=== PATIENT | male | born 1970 | race Caucasian/White ===

== ENCOUNTER → 2019-06-24 12:43 | Outpatient (BNVA) | payer MEDICARE, MEDICAID, SELFPAY | PROVIDERS: Family Provider Emergency Medicine; PCP Emergency Medicine; Visit Provider Nurse Practitioner | DX: M50.90 Cervical disc disorder, unspecified, unspecified cervical region (principal); M54.17 Radiculopathy, lumbosacral region; F17.210 Nicotine dependence, cigarettes, uncomplicated; Z79.891 Long term (current) use of opiate analgesic | CPT/HCPCS: 99213 ==

== ENCOUNTER → 2019-08-26 12:53 | Outpatient (BNVA) | payer MEDICARE, MEDICAID, SELFPAY | PROVIDERS: Family Provider Emergency Medicine; PCP Emergency Medicine; Visit Provider Anesthesiology | DX: M54.17 Radiculopathy, lumbosacral region (principal); M50.90 Cervical disc disorder, unspecified, unspecified cervical region; F17.210 Nicotine dependence, cigarettes, uncomplicated; Z79.891 Long term (current) use of opiate analgesic; Z71.6 Tobacco abuse counseling | CPT/HCPCS: 99214 ==

== ENCOUNTER 2019-12-19 09:38 | Emergency (ER) | payer MEDICARE, MEDICAID, SELFPAY ==
[2019-12-19 10:03] VITALS: BP 135/94; PULSE 71; RESP 16; TEMP 36.4; O2SAT 95; BMI 43.5
--- NOTE | 2019-12-19 10:54 | CT_ITS ---
WS: [id number] CT ABDOMEN PELVIS TECHNIQUE: Noncontrast CT of the abdomen and pelvis with coronal and sagittal reformatted images. CLINICAL INFORMATION: r flank pain COMPARISON: None. DLP: 1989.[address] scans at [facility] [place] use at least one of these dose optimization techniques: automat ed exposure control; mA and/or kV adjustment per patient size (includes targeted exams where dose is matched to clinical indication); or iterative reconstruction. FINDINGS: Mild right hydronephrosis. Small amount of inflammatory stranding about the right kidney. Mild right ureterectasis with inflamma tory stranding. Tiny calculus at the right UVJ along the bladder orifice measuring 2 mm. Left renal collecting system and ureter are decompressed. Noncontrast liver is normal. Normal noncont rast gallbladder. Noncontrast spleen is normal. Small esophageal hiatal hernia. Subsegmental atelecta sis in the lung bases. Mild fatty atrophy of the pancreas. No periaortic lymphadenopathy. Sigmoid colon appears normal. No evidence of small or large bowel obstruction. Normal appendix. Tiny fat-containing umbilical hernia. Disc space narrowing worse L5-S1. CT/CT kidney stone [id number] IMPRESSION: 1. Mild right hydronephrosis and ureterectasis with inflammatory stranding. 2. Tiny passed or nearly passed 2 mm calculus at the right UVJ bladder orifice . 3. No obstructing left renal or ureteral calculi. Tiny nonobstructing left dave al parenchymal calculus. 4. Appendix is normal in right lower quadrant.
--- NOTE | 2019-12-19 10:55 | ED_ITS ---
HPI - Back Pain/Injury General: Chief Complaint: Back Pain/Injury Stated Complaint: back pain Time Seen by Provider: 12/19/19 10:49 History of Present Illness: HPI Narrative: Patient ambulates in with complaint of back pain right flank that started about 0 300 this morning he has vomited x2 since then has a history of chronic pain and he is on medication for that through the pain management for lumbar spine pain denies any injury MD elicited complaint: back pain Pertinent past history: prior back pain Onset (ago): hour(s) Timing: constant and progressively worsening Severity: moderate Similar Symptoms Previously: No Quality: sharp Location: right flank Radiation: abdomen Exacerbating factors: movement Relieving factors: none Associated symptoms: Deny abdominal pain, chills, fever(s), nausea or vomiting Review of Systems Const: Denies: fever(s), chills or body aches Eyes: Denies: change in vision or blurry vision ENMT: Denies: throat pain or nasal congestion Card: Denies: chest pain or dyspnea on exertion Resp: Denies: dyspnea, productive cough or non-productive cough GI: Denies: abdominal pain, nausea or vomiting : Reports: other (Right flank pain); Denies: difficulty urinating Musc: Denies: extremity pain Skin/Breast: Denies: rash Neuro: Denies: headache(s) Psych: Denies: anxiety or depression Ritchie/Lymph: Denies: easy bruising PFSH ED PFSH: Medical History Cervical disc disorder Encounter for long-term (current) use of NSAIDs Encounter for long-term opiate analgesic use [facility] (current) use of opiate analgesic Lumbar pain Lumbosacral radiculopathy Tobacco use Family History Mother Cancer Uterine Social History Smoking and tobacco status: current every day smoker cigarettes Packs smoked per day: 1 Years cigarettes smoked: 25 Second hand smoke exposure: Yes Alcohol intake: never History of recent travel: No Physical Exam Const: COMMON NORMALS: no acute distress, average body habitus and patient oriented x3 HENMT: COMMON NORMALS: normocephalic HEAD & SCALP: normal to inspection and normocephalic FACE & SINUS: normal facial exam Eye: COMMON NORMALS: conjunctivae normal GENERAL EYE: appearance normal, both eyes and all related structures CONJUNCTIVA: Yes conjunctivae normal Neck/C-Spine: COMMON NORMALS: no JVD Chest: COMMONS NORMALS: normal inspection of the chest Resp: COMMON NORMALS: normal respiratory effort and clear to auscultation bilaterally AUSCULTATION: clear to auscultation bilaterally Cardio: COMMON NORMALS: no JVD, regular rate and regular rhythm RATE: regular rate RHYTHM: regular rhythm GI: COMMON NORMALS: Normal to inspection, nondistended, normoactive bowel sounds present : BLADDER/KIDNEY EXAM: Yes CVA tenderness Back/Pelvis: GENERAL BACK: Yes CVA tenderness CVA tenderness: right Extremity: COMMON NORMALS: normal to inspection and full ROM Neuro: COMMON NORMALS: patient oriented x3 Course Vital Signs: Vital signs: Vital Signs Temperature 97.6 F 12/19/19 10:03 Pulse Rate 71 12/19/19 10:03 Respiratory Rate 16 12/19/19 10:03 Blood Pressure 135/94 12/19/19 10:03 Pulse Oximetry 95 12/19/19 10:03 Discharge Plan Discharge Prescriptions: No Action atorvastatin [Lipitor] 80 mg tablet 80 mg PO ONCE RF: 0 lisinopril 10 mg tablet 10 mg PO ONCE RF: 0 ezetimibe [Zetia] 10 mg tablet 10 mg PO ONCE RF: 0 ibuprofen 800 mg tablet 800 mg PO TID RF: 0 hydrocodone-acetaminophen 10-325 mg tablet 0.5 tab PO BID PRN (Reason: pain) 30 Days Qty: 30 RF: 0 hydrocodone-acetaminophen 10-325 mg tablet 0.5 tab PO BID PRN (Reason: pain) 30 Days Qty: 30 RF: 0 tramadol 50 mg tablet 100 mg PO BID PRN (Reason: pain) 30 Days Qty: 120 RF: 1 Coding Level of Care Code 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
[2019-12-19 11:11] LABS: Basophils # 0.1 10^3/uL (0.0-0.1); Basophils % 0.4 %; Eosinophils # 0.1 10^3/uL (0.0-0.8); Eosinophils % 0.7 %; Hematocrit 48.5 % (42.0-52.0); Hemoglobin 16.4 g/dL (11.7-16.6); Lymphocytes # 2.9 10^3/uL (0.8-4.8); Lymphocytes % 22.4 %; Mean Corpuscular HGB Conc 33.8 g/dL (30.0-36.0); Mean Corpuscular Hemoglobin 30.5 pg (28.0-34.0); Mean Corpuscular Volume 90.1 fL (80-94); Mean Platelet Volume 10.8 fL (7.4-10.4); Monocytes # 0.8 10^3/uL (0.2-0.9); Monocytes % 6.5 %; Neutrophils # 8.9 10^3/uL (1.8-7.7); Neutrophils % 69.6 %; Nucleated Red Blood Cells % 0 %; Platelet Count 286 10^3/cmm (130-400); Red Blood Count 5.38 10^6/uL (4.1-5.3); Red Cell Distribution Width 12.9 % (12.1-15.1); White Blood Count 12.8 10^3/uL (4.0-10.0)
[2019-12-19] MEDS: ketorolac 30 mg/mL INJ IVP (11:12)
[2019-12-19] MEDS: sodium chloride 0.9% 1,000 ML 999 ML IV (11:12)
[2019-12-19] MEDS: ondansetron 2 mg/ML SDV 2 mL 4 MG IVP (11:12)
[2019-12-19 11:29] LABS: Alanine Aminotransferase 29 U/L (0-41); Albumin Level 4.3 g/dL (3.5-5.2); Alkaline Phosphatase 83 IU/L (40-130); Anion Gap 14.1 (5-19); Aspartate Amino Transferase 21 U/L (0-40); Blood Urea Nitrogen 9 mg/dL (6-20); Calcium 9.2 mg/dL (8.5-10.5); Carbon Dioxide 29 mmol/L (22-29); Chloride 100 mmol/L (98-107); Globulin 2.5 g/dL (1.3-4.6); Glomerular Filtration Rate 89.7 mL/min (90-130); Glucose 142 mg/dL (65-115); Osmolality Calculated 286 mOsm/kg (285-295); Potassium 4.1 mmol/L (3.5-5.1); Sodium 139 mmol/L (136-145); Total Bilirubin 0.5 mg/dL (0.15-1.2); Total Protein 6.8 g/dL (6.6-8.7)
[2019-12-19 12:17] LABS: Add Urine Microscopic? YES; Bilirubin Urine Neg (NEGATIVE); Blood Urine 2+ (Negative); Glucose Urine UA Norm (Normal); Ketones Urine Negative (Negative); Leukocyte Esterase Urine Negative (Negative); Nitrate Urine Negative (Negative); Protein Urine Neg (Negative); Sulfosalicylic Acid Urine Negative (Negative); Urine Appearance Clear (CLEAR); Urine Color Yellow (Yellow); Urobilinogen Urine Norm (Negative); pH Urine 8.5 (5-7)
[2019-12-19 12:22] LABS: Add Urine Culture? Yes; Bacteria Urine TRACE; RBC Urine 15-25 /hpf (0-2); Squamous Epithelial Cell Urine 0-4 (0-5)
[2019-12-19 12:58] VITALS: BP 138/87; PULSE 71; RESP 18; O2SAT 96
== END 2019-12-19 13:00 | disposition home or self-care (01) ==
PROVIDERS: Emergency Provider Nurse Practitioner Family
DX: M54.9 Dorsalgia, unspecified (principal); F17.210 Nicotine dependence, cigarettes, uncomplicated
CPT/HCPCS: 12345; 74176; 80053; 81001; 85025; 87086; 96361; 96374; 96375; 99282; 99283; J1885; J2405; J7030

== ENCOUNTER → 2019-12-21 13:20 | Outpatient (BNVA) | payer MEDICARE, MEDICAID, SELFPAY | PROVIDERS: Family Provider Emergency Medicine; PCP Emergency Medicine; Visit Provider Anesthesiology | DX: M54.42 Lumbago with sciatica, left side (principal); M54.17 Radiculopathy, lumbosacral region; M50.90 Cervical disc disorder, unspecified, unspecified cervical region; F17.210 Nicotine dependence, cigarettes, uncomplicated; Z79.891 Long term (current) use of opiate analgesic | CPT/HCPCS: 99214 ==

== ENCOUNTER → 2020-02-17 10:43 | Outpatient (BNVA) | payer MEDICARE, MEDICAID, SELFPAY | PROVIDERS: Family Provider Emergency Medicine; PCP Emergency Medicine; Visit Provider Anesthesiology | DX: M54.17 Radiculopathy, lumbosacral region (principal); M50.90 Cervical disc disorder, unspecified, unspecified cervical region; F17.210 Nicotine dependence, cigarettes, uncomplicated; Z79.891 Long term (current) use of opiate analgesic; Z71.6 Tobacco abuse counseling | CPT/HCPCS: 99214 ==

== ENCOUNTER → 2020-04-17 12:57 | Outpatient (BNVA) | payer MEDICARE, MEDICAID, SELFPAY | PROVIDERS: Family Provider Emergency Medicine; PCP Emergency Medicine; Visit Provider Anesthesiology | DX: M54.42 Lumbago with sciatica, left side (principal); M54.17 Radiculopathy, lumbosacral region; M50.90 Cervical disc disorder, unspecified, unspecified cervical region; F17.210 Nicotine dependence, cigarettes, uncomplicated; Z79.891 Long term (current) use of opiate analgesic | CPT/HCPCS: 99214 ==

== ENCOUNTER → 2020-06-05 13:09 | Outpatient (BNVA) | payer MEDICARE, MEDICAID, SELFPAY | PROVIDERS: Family Provider Emergency Medicine; PCP Emergency Medicine; Visit Provider Anesthesiology | DX: M54.42 Lumbago with sciatica, left side (principal); M54.17 Radiculopathy, lumbosacral region; M50.90 Cervical disc disorder, unspecified, unspecified cervical region; F17.210 Nicotine dependence, cigarettes, uncomplicated; Z79.891 Long term (current) use of opiate analgesic; Z71.6 Tobacco abuse counseling | CPT/HCPCS: 99214 ==

== ENCOUNTER → 2020-08-14 12:43 | Outpatient (BNVA) | payer MEDICARE, MEDICAID, SELFPAY | PROVIDERS: Family Provider Emergency Medicine; PCP Emergency Medicine; Visit Provider Anesthesiology | DX: M54.17 Radiculopathy, lumbosacral region (principal); M50.90 Cervical disc disorder, unspecified, unspecified cervical region; F17.210 Nicotine dependence, cigarettes, uncomplicated; Z79.891 Long term (current) use of opiate analgesic | CPT/HCPCS: 99213 ==

== ENCOUNTER → 2020-10-16 13:22 | Outpatient (BNVA) | payer MEDICARE, MEDICAID, SELFPAY | PROVIDERS: Family Provider Emergency Medicine; PCP Emergency Medicine; Visit Provider Anesthesiology | DX: M54.42 Lumbago with sciatica, left side (principal); F17.210 Nicotine dependence, cigarettes, uncomplicated; Z79.891 Long term (current) use of opiate analgesic | CPT/HCPCS: 99213 ==

== ENCOUNTER → 2020-12-14 12:54 | Outpatient (BNVA) | payer MEDICARE, MEDICAID, SELFPAY | PROVIDERS: Family Provider Emergency Medicine; PCP Emergency Medicine; Visit Provider Nurse Practitioner | DX: G89.29 Other chronic pain (principal); M54.17 Radiculopathy, lumbosacral region; M50.90 Cervical disc disorder, unspecified, unspecified cervical region; F17.210 Nicotine dependence, cigarettes, uncomplicated; Z79.899 Other long term (current) drug therapy; Z79.891 Long term (current) use of opiate analgesic; Z71.6 Tobacco abuse counseling | CPT/HCPCS: 99213; 99214 ==

== ENCOUNTER → 2021-02-14 12:31 | Outpatient (BNVA) | payer MEDICARE, MEDICAID, SELFPAY | PROVIDERS: Family Provider Emergency Medicine; PCP Emergency Medicine; Visit Provider Nurse Practitioner | DX: M54.17 Radiculopathy, lumbosacral region (principal); M50.90 Cervical disc disorder, unspecified, unspecified cervical region; F17.210 Nicotine dependence, cigarettes, uncomplicated; Z79.891 Long term (current) use of opiate analgesic; Z71.6 Tobacco abuse counseling | CPT/HCPCS: 99213 ==

== ENCOUNTER → 2021-04-12 09:42 | Outpatient (BNVA) | payer MEDICARE, MEDICAID, SELFPAY | PROVIDERS: Family Provider Emergency Medicine; PCP Emergency Medicine; Visit Provider Anesthesiology | DX: G89.29 Other chronic pain (principal); M54.17 Radiculopathy, lumbosacral region; M50.90 Cervical disc disorder, unspecified, unspecified cervical region; F17.210 Nicotine dependence, cigarettes, uncomplicated; Z71.6 Tobacco abuse counseling; Z79.891 Long term (current) use of opiate analgesic | CPT/HCPCS: 99214 ==

== ENCOUNTER → 2021-06-12 09:45 | Outpatient (BNVA) | payer MEDICARE, MEDICAID, SELFPAY | PROVIDERS: Family Provider Emergency Medicine; PCP Emergency Medicine; Visit Provider Anesthesiology | DX: G89.29 Other chronic pain (principal); M54.17 Radiculopathy, lumbosacral region; M50.90 Cervical disc disorder, unspecified, unspecified cervical region; F17.210 Nicotine dependence, cigarettes, uncomplicated; Z79.891 Long term (current) use of opiate analgesic | CPT/HCPCS: 99214 ==

== ENCOUNTER → 2021-08-08 12:24 | Outpatient (BNVA) | payer MEDICARE, MEDICAID, SELFPAY | PROVIDERS: Family Provider Emergency Medicine; PCP Emergency Medicine; Visit Provider Anesthesiology Pain Medicine | DX: M47.816 Spondylosis without myelopathy or radiculopathy, lumbar region (principal); M51.16 Intervertebral disc disorders with radiculopathy, lumbar region; M54.2 Cervicalgia; G03.9 Meningitis, unspecified; F17.210 Nicotine dependence, cigarettes, uncomplicated; Z79.891 Long term (current) use of opiate analgesic | CPT/HCPCS: 99205 ==

== ENCOUNTER → 2021-09-12 13:47 | Outpatient (BNVA) | payer MEDICARE, MEDICAID, SELFPAY | PROVIDERS: Family Provider Emergency Medicine; PCP Emergency Medicine; Visit Provider Anesthesiology Pain Medicine | DX: M47.816 Spondylosis without myelopathy or radiculopathy, lumbar region (principal); M51.16 Intervertebral disc disorders with radiculopathy, lumbar region; M25.511 Pain in right shoulder; M54.2 Cervicalgia; G03.9 Meningitis, unspecified; M79.604 Pain in right leg; M79.605 Pain in left leg; F17.210 Nicotine dependence, cigarettes, uncomplicated; Z79.891 Long term (current) use of opiate analgesic | CPT/HCPCS: 99214 ==

== ENCOUNTER 2021-09-26 10:49 | Outpatient (CLI) | payer MEDICARE, MEDICAID, SELFPAY ==
--- NOTE | 2021-09-26 11:00 | MR_ITS ---
WS: [id number] MRI LUMBAR SPINE NONCONTRAST HISTORY: Chronic back pain down LEFT leg. COMPARISON: 11/05/2015 TECHNIQUE: Sagittal and axial multisequence imaging is submitted. Straightening of the normal cervical lordosis. There is a central disc protrusion at C6-7 contacting the ventral thecal sac. Mild osteophytic ridging at C5-6. Very mild straightening of the posterior lumbar alignment. Benign hemangioma T12. Mild disc desiccation and narrowing at L5-S1. The remaining disc spaces are normal. Conus terminates normally at L1-2 disc level. L1-L2: Normal. L2-L3: Normal. L3-L4: Very slight annular disc bulge. No stenosis. L4-L5: Mild annular disc bulge with mild ligamentum flavum and facet arthritis. Very shallow RIGHT fo raminal to extraforaminal disc protrusion is reidentified with mild contact on the RIGHT L4 exiting n erve root. Similar to the prior study. L5-S1: Mild annular disc bulging. Moderate size RIGHT paracentral disc protrusion extends into the la teral recess contacting the RIGHT S1 nerve root. There is slight displacement of the RIGHT S1 nerve r oot. This disc protrusion has increased in size with greater contact on the S1 nerve root. There is a dditional increased soft tissue density in the LEFT foramen effacing the fat. Consistent with a LEFT foraminal disc protrusion which is new since the prior study. This disc protrusion would be contactin g the LEFT exiting L5 nerve root. MR/MR lumbar spine wo con* [id number] IMPRESSION: 1. Increase in size of the previously described RIGHT paracentral disc protrus ion contacting and displacing the RIGHT S1 nerve root. 2. Additional new LEFT foraminal disc protrusion at L5-S1 completely effacing the fat in the neural foramen and contacting the exiting LEFT L5 nerve root. 3. New bilateral foraminal stenosis at L5-S1, LEFT greater than RIGHT. 4. Shallow RIGHT foraminal and extraforaminal disc protrusion contacting the R IGHT L4 nerve root, unchanged since the prior study.
== END 2021-09-26 10:50 | disposition home or self-care (01) ==
LOC: RAD 10:51
PROVIDERS: Family Provider Emergency Medicine; PCP Emergency Medicine; Visit Provider Anesthesiology Pain Medicine
DX: M48.062 Spinal stenosis, lumbar region with neurogenic claudication (principal); M54.16 Radiculopathy, lumbar region; M51.26 Other intervertebral disc displacement, lumbar region; M51.27 Other intervertebral disc displacement, lumbosacral region; M48.07 Spinal stenosis, lumbosacral region
CPT/HCPCS: 72148

== ENCOUNTER → 2021-10-08 14:48 | Outpatient (BNVA) | payer MEDICARE, MEDICAID, SELFPAY | PROVIDERS: Family Provider Emergency Medicine; PCP Emergency Medicine; Visit Provider Anesthesiology Pain Medicine | DX: M47.816 Spondylosis without myelopathy or radiculopathy, lumbar region (principal); M51.16 Intervertebral disc disorders with radiculopathy, lumbar region; M54.2 Cervicalgia; F17.210 Nicotine dependence, cigarettes, uncomplicated; Z79.891 Long term (current) use of opiate analgesic | CPT/HCPCS: 99213; 99214 ==

== ENCOUNTER → 2021-10-30 14:10 | Outpatient (BNVA) | payer MEDICARE, MEDICAID, SELFPAY | PROVIDERS: Family Provider Emergency Medicine; PCP Emergency Medicine; Visit Provider Emergency Medicine | DX: G89.29 Other chronic pain (principal); M25.512 Pain in left shoulder | CPT/HCPCS: 73030 ==

== ENCOUNTER → 2021-11-07 09:40 | Outpatient (BNVA) | payer MEDICARE, MEDICAID, SELFPAY | PROVIDERS: Family Provider Emergency Medicine; PCP Emergency Medicine; Visit Provider Anesthesiology Pain Medicine | DX: M47.816 Spondylosis without myelopathy or radiculopathy, lumbar region (principal); M51.16 Intervertebral disc disorders with radiculopathy, lumbar region; M54.2 Cervicalgia; G03.9 Meningitis, unspecified; M79.604 Pain in right leg; M79.605 Pain in left leg; F17.210 Nicotine dependence, cigarettes, uncomplicated; Z79.891 Long term (current) use of opiate analgesic | CPT/HCPCS: 99214 ==

== ENCOUNTER 2021-11-28 06:00 | Outpatient (RCR) | payer MEDICARE, MEDICAID, SELFPAY | END 2021-12-19 23:59 | disposition home or self-care (01) | LOC: MPT 06:00 | PROVIDERS: PCP Emergency Medicine; Referring Provider Anesthesiology Pain Medicine; Visit Provider Anesthesiology Pain Medicine | DX: G89.29 Other chronic pain (principal); M54.50 Low back pain, unspecified | CPT/HCPCS: 97110; 97162; G0283 ==

== ENCOUNTER → 2021-12-11 14:11 | Outpatient (BNVA) | payer MEDICARE, MEDICAID, SELFPAY | PROVIDERS: PCP Emergency Medicine; Visit Provider Anesthesiology Pain Medicine | DX: M75.02 Adhesive capsulitis of left shoulder (principal); M51.16 Intervertebral disc disorders with radiculopathy, lumbar region; M47.816 Spondylosis without myelopathy or radiculopathy, lumbar region; M54.2 Cervicalgia; G03.9 Meningitis, unspecified; M79.604 Pain in right leg; M79.605 Pain in left leg; F17.210 Nicotine dependence, cigarettes, uncomplicated; Z79.891 Long term (current) use of opiate analgesic | CPT/HCPCS: 99203; 99213; 99214 ==

== ENCOUNTER 2021-12-20 06:00 | Outpatient (RCR) | payer MEDICARE, MEDICAID, SELFPAY | END 2022-01-19 23:59 | disposition home or self-care (01) | LOC: MPT 06:00 | PROVIDERS: PCP Emergency Medicine; Referring Provider Anesthesiology Pain Medicine; Visit Provider Anesthesiology Pain Medicine | DX: M54.50 Low back pain, unspecified (principal); G89.29 Other chronic pain | CPT/HCPCS: 97110; G0283 ==

== ENCOUNTER → 2022-01-09 13:11 | Outpatient (BNVA) | payer MEDICARE, MEDICAID, SELFPAY | PROVIDERS: PCP Emergency Medicine; Visit Provider Anesthesiology Pain Medicine | DX: G89.29 Other chronic pain (principal); M51.16 Intervertebral disc disorders with radiculopathy, lumbar region; M47.816 Spondylosis without myelopathy or radiculopathy, lumbar region; M54.2 Cervicalgia; M25.512 Pain in left shoulder; G03.9 Meningitis, unspecified; M79.605 Pain in left leg; M79.604 Pain in right leg; Z79.891 Long term (current) use of opiate analgesic; F17.210 Nicotine dependence, cigarettes, uncomplicated | CPT/HCPCS: 99214 ==

== ENCOUNTER → 2022-02-11 12:47 | Outpatient (BNVA) | payer MEDICARE, MEDICAID, SELFPAY | PROVIDERS: PCP Emergency Medicine; Visit Provider Anesthesiology Pain Medicine | DX: G89.29 Other chronic pain (principal); M47.816 Spondylosis without myelopathy or radiculopathy, lumbar region; M51.16 Intervertebral disc disorders with radiculopathy, lumbar region; G03.9 Meningitis, unspecified; M25.512 Pain in left shoulder; M79.604 Pain in right leg; M79.605 Pain in left leg; F17.210 Nicotine dependence, cigarettes, uncomplicated; Z79.891 Long term (current) use of opiate analgesic | CPT/HCPCS: 99214 ==

== ENCOUNTER → 2022-03-13 12:40 | Outpatient (BNVA) | payer MEDICARE, MEDICAID, SELFPAY | PROVIDERS: PCP Emergency Medicine; Visit Provider Anesthesiology Pain Medicine | DX: G89.29 Other chronic pain (principal); M47.816 Spondylosis without myelopathy or radiculopathy, lumbar region; M51.16 Intervertebral disc disorders with radiculopathy, lumbar region; M54.2 Cervicalgia; G03.9 Meningitis, unspecified; M25.512 Pain in left shoulder; F17.210 Nicotine dependence, cigarettes, uncomplicated | CPT/HCPCS: 99214 ==

== ENCOUNTER → 2022-04-10 13:19 | Outpatient (BNVA) | payer MEDICARE, MEDICAID, SELFPAY | PROVIDERS: PCP Emergency Medicine; Visit Provider Anesthesiology Pain Medicine | DX: G89.29 Other chronic pain (principal); M51.16 Intervertebral disc disorders with radiculopathy, lumbar region; M47.816 Spondylosis without myelopathy or radiculopathy, lumbar region; M54.2 Cervicalgia; M25.512 Pain in left shoulder; G03.9 Meningitis, unspecified; M79.605 Pain in left leg; M79.604 Pain in right leg; F17.210 Nicotine dependence, cigarettes, uncomplicated | CPT/HCPCS: 99214 ==

== ENCOUNTER → 2022-05-05 12:30 | Outpatient (BNVA) | payer MEDICARE, MEDICAID, SELFPAY | PROVIDERS: PCP Emergency Medicine; Visit Provider Anesthesiology Pain Medicine | DX: G89.29 Other chronic pain (principal); M47.816 Spondylosis without myelopathy or radiculopathy, lumbar region; M51.16 Intervertebral disc disorders with radiculopathy, lumbar region; M25.512 Pain in left shoulder; G03.9 Meningitis, unspecified; M79.604 Pain in right leg; M79.605 Pain in left leg; F17.210 Nicotine dependence, cigarettes, uncomplicated; M54.2 Cervicalgia | CPT/HCPCS: 99214 ==

== ENCOUNTER → 2022-06-03 12:43 | Outpatient (BNVA) | payer MEDICARE, MEDICAID, SELFPAY | PROVIDERS: PCP Emergency Medicine; Visit Provider Anesthesiology Pain Medicine | DX: G89.29 Other chronic pain (principal); M51.16 Intervertebral disc disorders with radiculopathy, lumbar region; M47.816 Spondylosis without myelopathy or radiculopathy, lumbar region; M25.512 Pain in left shoulder; G03.9 Meningitis, unspecified; M79.604 Pain in right leg; M79.605 Pain in left leg | CPT/HCPCS: 99214 ==

== ENCOUNTER → 2022-07-03 12:18 | Outpatient (BNVA) | payer MEDICARE, MEDICAID, SELFPAY | PROVIDERS: PCP Emergency Medicine; Visit Provider Anesthesiology Pain Medicine | DX: G89.29 Other chronic pain (principal); M47.816 Spondylosis without myelopathy or radiculopathy, lumbar region; M51.16 Intervertebral disc disorders with radiculopathy, lumbar region; M54.2 Cervicalgia; M25.512 Pain in left shoulder; G03.9 Meningitis, unspecified; Z79.891 Long term (current) use of opiate analgesic; M79.604 Pain in right leg; M79.605 Pain in left leg | CPT/HCPCS: 99214 ==

== ENCOUNTER → 2022-07-31 13:03 | Outpatient (BNVA) | payer MEDICARE, MEDICAID, SELFPAY | PROVIDERS: PCP Emergency Medicine; Visit Provider Anesthesiology Pain Medicine | DX: G89.29 Other chronic pain (principal); M47.816 Spondylosis without myelopathy or radiculopathy, lumbar region; M51.16 Intervertebral disc disorders with radiculopathy, lumbar region; M54.2 Cervicalgia; M25.512 Pain in left shoulder; G03.9 Meningitis, unspecified | CPT/HCPCS: 99214 ==

== ENCOUNTER → 2022-08-26 10:57 | Outpatient (BNVA) | payer MEDICARE, MEDICAID, SELFPAY | PROVIDERS: PCP Emergency Medicine; Visit Provider Anesthesiology Pain Medicine | DX: G89.29 Other chronic pain (principal); M47.816 Spondylosis without myelopathy or radiculopathy, lumbar region; M51.16 Intervertebral disc disorders with radiculopathy, lumbar region; G03.9 Meningitis, unspecified; M25.512 Pain in left shoulder; M54.2 Cervicalgia | CPT/HCPCS: 99214 ==

== ENCOUNTER → 2022-09-24 09:25 | Outpatient (BNVA) | payer MEDICARE, MEDICAID, SELFPAY | PROVIDERS: Visit Provider Anesthesiology Pain Medicine | DX: G89.29 Other chronic pain (principal); M47.816 Spondylosis without myelopathy or radiculopathy, lumbar region; M51.16 Intervertebral disc disorders with radiculopathy, lumbar region; M54.2 Cervicalgia; M25.512 Pain in left shoulder | CPT/HCPCS: 99214 ==

== ENCOUNTER → 2022-10-30 10:03 | Outpatient (BNVA) | payer MEDICARE, MEDICAID, SELFPAY | PROVIDERS: Visit Provider Anesthesiology Pain Medicine | DX: G89.29 Other chronic pain (principal); M54.2 Cervicalgia; G03.9 Meningitis, unspecified; M47.816 Spondylosis without myelopathy or radiculopathy, lumbar region; M51.16 Intervertebral disc disorders with radiculopathy, lumbar region; M25.512 Pain in left shoulder | CPT/HCPCS: 99214 ==

== ENCOUNTER → 2022-11-26 09:31 | Outpatient (BNVA) | payer MEDICARE, MEDICAID, SELFPAY | PROVIDERS: Visit Provider Anesthesiology Pain Medicine | DX: G89.29 Other chronic pain (principal); M54.2 Cervicalgia; M47.816 Spondylosis without myelopathy or radiculopathy, lumbar region; M51.16 Intervertebral disc disorders with radiculopathy, lumbar region; M25.512 Pain in left shoulder | CPT/HCPCS: 99214 ==

== ENCOUNTER → 2022-12-18 12:45 | Outpatient (BNVA) | payer MEDICARE, MEDICAID, SELFPAY | PROVIDERS: Visit Provider Anesthesiology Pain Medicine | DX: G89.29 Other chronic pain (principal); M51.16 Intervertebral disc disorders with radiculopathy, lumbar region; M47.816 Spondylosis without myelopathy or radiculopathy, lumbar region; G03.9 Meningitis, unspecified; M54.2 Cervicalgia; M25.512 Pain in left shoulder | CPT/HCPCS: 99213 ==

== ENCOUNTER → 2023-01-06 13:57 | Outpatient (BNVA) | payer MEDICARE, MEDICAID, SELFPAY | PROVIDERS: Visit Provider Orthopaedic Surgery | DX: M51.16 Intervertebral disc disorders with radiculopathy, lumbar region (principal); M47.816 Spondylosis without myelopathy or radiculopathy, lumbar region; M54.50 Low back pain, unspecified | CPT/HCPCS: 72110; 99204 ==

== ENCOUNTER → 2023-01-15 12:56 | Outpatient (BNVA) | payer MEDICARE, MEDICAID, SELFPAY | PROVIDERS: Visit Provider Anesthesiology Pain Medicine | DX: M51.16 Intervertebral disc disorders with radiculopathy, lumbar region (principal); G03.9 Meningitis, unspecified; M47.816 Spondylosis without myelopathy or radiculopathy, lumbar region; M25.512 Pain in left shoulder; G89.29 Other chronic pain | CPT/HCPCS: 99213 ==

== ENCOUNTER → 2023-01-21 14:37 | Outpatient (BNVA) | payer MEDICARE, MEDICAID, SELFPAY | PROVIDERS: Visit Provider Family Medicine | DX: I10 Essential (primary) hypertension (principal); M51.16 Intervertebral disc disorders with radiculopathy, lumbar region; E78.5 Hyperlipidemia, unspecified; E78.2 Mixed hyperlipidemia; Z13.1 Encounter for screening for diabetes mellitus; Z76.89 Persons encountering health services in other specified circumstances | CPT/HCPCS: 80053; 80061 ==

== ENCOUNTER 2023-01-30 14:44 | Outpatient (CLI) | payer MEDICARE, MEDICAID, SELFPAY ==
--- NOTE | 2023-01-30 15:15 | MR_ITS ---
WS: [id number] MRI LUMBAR SPINE NONCONTRAST HISTORY: lower back pain COMPARISON: 09/26/2021 TECHNIQUE: Sagittal and axial multisequence imaging is submitted. Central disc protrusion at C6-7. Mild contact on the ventral cervical cord. Normal lumbar alignment with no compression fractures or marrow edema. Mild disc desiccation at L5-S1. No acute fracture. Conus terminates normally at L1-2 disc level. L1-L2: Normal. L2-L3: New central disc protrusion slightly greatest to the right deforming the ventral thecal sac. T here is mild contact on the traversing L3 nerve roots. L3-L4: Mild annular disc bulging. Disc contacts but does not displace the traversing L4 nerve roots. No significant stenosis. L4-L5: Mild annular disc bulging with mild facet and ligamentum flavum hypertrophy. Very slight disc contact on the traversing L5 nerve roots but no displacement. Minimal right foraminal disc protrusion is reidentified. Slight decrease in size of the right foraminal disc protrusion since the prior stud y. Less contact on the exiting right L4 nerve root. Mild to moderate right foraminal stenosis. L5-S1: Moderate annular disc bulging with slight decrease in size of the right paracentral disc protr usion previously described. Disc protrusion contacts the right S1 nerve root but less displacement th an on the prior study. Left foraminal disc protrusion is reidentified. Continued moderate to severe l eft foraminal stenosis with near complete effacement of fat. Mild right foraminal stenosis. Paravertebral soft tissues are normal. IMPRESSION: 1. L5-S1: The right paracentral disc protrusion previously described has slightly decreased in size. There is still contact on the right S1 nerve root but less displacement. 2. Moderate to severe left foraminal stenosis at L5-S1 and mild right foraminal stenosis. 3. L2-3: New central disc protrusion extending just to the right of midline. Mild contact on the yifan ersing L3 nerve roots. 4. No high-grade central stenosis. 5. L4-5: Mild to moderate right foraminal stenosis. The disc protrusion previously described has slig htly decreased in size.
== END 2023-01-30 14:45 | disposition home or self-care (01) ==
LOC: RAD 14:45
PROVIDERS: PCP Orthopaedic Surgery; Visit Provider Orthopaedic Surgery
DX: M51.16 Intervertebral disc disorders with radiculopathy, lumbar region (principal); M51.27 Other intervertebral disc displacement, lumbosacral region; M48.07 Spinal stenosis, lumbosacral region
CPT/HCPCS: 72148

== ENCOUNTER → 2023-02-03 13:50 | Outpatient (BNVA) | payer MEDICARE, MEDICAID, SELFPAY | PROVIDERS: PCP Orthopaedic Surgery; Visit Provider Physician Assistant | DX: M51.16 Intervertebral disc disorders with radiculopathy, lumbar region (principal) | CPT/HCPCS: 99213 ==

== ENCOUNTER → 2023-02-17 13:23 | Outpatient (BNVA) | payer MEDICARE, MEDICAID, SELFPAY | PROVIDERS: PCP Orthopaedic Surgery; Visit Provider Anesthesiology Pain Medicine | DX: M51.16 Intervertebral disc disorders with radiculopathy, lumbar region (principal); M48.061 Spinal stenosis, lumbar region without neurogenic claudication; M51.26 Other intervertebral disc displacement, lumbar region; M51.37 Other intervertebral disc degeneration, lumbosacral region | CPT/HCPCS: 99214 ==

== ENCOUNTER → 2023-02-26 11:01 | Outpatient (BNVA) | payer MEDICARE, MEDICAID, SELFPAY | PROVIDERS: PCP Orthopaedic Surgery; Visit Provider Orthopaedic Surgery | DX: Z01.818 Encounter for other preprocedural examination (principal); M48.062 Spinal stenosis, lumbar region with neurogenic claudication | CPT/HCPCS: 99214 ==

== ENCOUNTER → 2023-03-10 13:15 | Outpatient (BNVA) | payer MEDICARE, MEDICAID, SELFPAY | PROVIDERS: PCP Family Medicine; Referring Provider Orthopaedic Surgery; Visit Provider Orthopaedic Surgery | DX: Z01.818 Encounter for other preprocedural examination (principal); M48.062 Spinal stenosis, lumbar region with neurogenic claudication | CPT/HCPCS: 80053; 81000; 85025 ==

== ENCOUNTER → 2023-03-17 14:44 | Outpatient (BNVA) | payer MEDICARE, MEDICAID, SELFPAY | PROVIDERS: PCP Family Medicine; Visit Provider Family Medicine | DX: Z01.818 Encounter for other preprocedural examination (principal); Z79.891 Long term (current) use of opiate analgesic | CPT/HCPCS: 81003; 83036 ==

== ENCOUNTER → 2023-03-19 14:22 | Outpatient (BNVA) | payer MEDICARE, MEDICAID, SELFPAY | PROVIDERS: PCP Family Medicine; Visit Provider Anesthesiology Pain Medicine | DX: M51.16 Intervertebral disc disorders with radiculopathy, lumbar region (principal); M48.061 Spinal stenosis, lumbar region without neurogenic claudication | CPT/HCPCS: 99214 ==

== ENCOUNTER 2023-03-25 07:55 | Day surgery (SDC) | payer MEDICARE, MEDICAID, SELFPAY ==
[2023-03-25] VITALS (8 sets, daily range): BP systolic 106–148; BP diastolic 47–92; PULSE 70–77; RESP 16–20; TEMP 36.1–36.6; O2SAT 91–97; BMI 47.9
--- NOTE | 2023-03-25 | XR_ITS ---
WS: [id number] EXAMINATION: XR lumbar spine 2-3V* [id number] L-SPINE : 2 views REASON FOR EXAM: L4-5; L5-S1 decompression COMPARISON: None available. ORDER DATE: 03/25/2023 12:00 AM FINDINGS/IMPRESSION: Fluoroscopy time 25.5 seconds Surgical instrumentation superimposing the lower lumbar spine localizing the L4-5 and L5-S1 disc spac es..
[2023-03-25 08:28] LABS: Glucose Point of Care 127 mg/dL (70-110)
[2023-03-25] MEDS: sodium chloride 0.9% 1,000 ML 30 ML IV (08:34)
--- NOTE | 2023-03-25 08:46 | ECG_ITS ---
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 Measurements Intervals [place] Rate: 64 P: 37 IL: 138 QRS: -43 QRSD: 99 T: -8 QT: 398 QTc: 412 Interpretive Statements SINUS RHYTHM LEFT AXIS DEVIATION [QRS AXIS < -30] PATTERN CONSISTENT WITH PULMONARY DISEASE INCOMPLETE RIGHT BUNDLE BRANCH BLOCK [90+ ms QRS DURATION, TERMINAL R IN V1/V2, 40+ ms S IN I/aVL/V4/V5/V6] No previous ECG available for comparison Electronically Signed On 03-25-2023 10:03:16 CDT by Ivis Deng M.D. [id number]
--- NOTE | 2023-03-25 09:03 | W.PM.OPSUD ---
Surgery/Procedure H&P Update DATE OF PROCEDURE: March 25, 2023 DATE H&P PERFORMED: 03/17/23 H&P UPDATE INFORMATION: I have reviewed H&P completed within last 30 days, I have examined patient prior to procedure and No changes to prior documentation PREOP DIAGNOSIS: Lumbar stenosis PLANNED PROCEDURE: Operation Date: 03/25/23 09:35 Proposed Procedures p Lumbar Spine Decompression/(Standing on Left)L 4/5 L5/S1 Decompression(Left) - Sarkis Gagnon DO
--- NOTE | 2023-03-25 09:27 | ANES.PREANE2 ---
Pre-Anesthetic Assessment Height/Weight: Height 1.68 m Weight 134.626 kg Temp Pulse Resp BP Pulse Ox O2 Del Method 97 F L 72 20 H 148/92 97 Room Air 03/25/23 08:15 03/25/23 08:15 03/25/23 08:15 03/25/23 08:15 03/25/23 08:15 03/25/23 08:15 Preop Diagnosis: Lumbar stenosis Operation Date: 03/25/23 09:35 Proposed Procedures p Lumbar Spine Decompression/(Standing on Left)L 4/5 L5/S1 Decompression(Left) - Sarkis Gagnon, DO Familial anesthetic complications: None Was Beta Sin taken within 24 hours: N/A Was Clonidine taken within 24 hours: N/A Last intake: Intake Last Liquid Date 03/24/23 Last Liquid Time 23:00 Last Solid Date 03/24/23 Last Solid Time 23:00 Social No alcohol and No tobacco Exam alert, oriented x 3, clear to auscultation bilaterally and regular rate & rhythm Airway Dentition: other (no teeth) Pulmonary Chronic Obstructive Pulmonary Disease CV/HEM Hypertension GI Gastroesophageal Reflux Disease Metabolic Hyperlipidemia Anesthetic Plan ASA status: 3 Anesthesia: General Risk of > 500 ml blood loss (7ml/kg in children): No Medications/Allergies Home Medications Medication Instructions Recorded Confirmed Last Taken Type atorvastatin 80 mg tablet (Lipitor) 80 mg PO DAILY 90 days #90 tabs 01/21/23 03/24/23 03/24/23 Rx ezetimibe 10 mg tablet (Zetia) 10 mg PO DAILY 90 days #90 tabs 01/21/23 03/24/23 03/24/23 Rx ibuprofen 800 mg tablet 800 mg PO BID PRN pain #90 tabs 01/21/23 03/24/23 03/20/23 Rx lisinopril 10 mg tablet 10 mg PO DAILY 90 days #90 tabs 01/21/23 03/24/23 03/24/23 Rx blood sugar diagnostic (Blood #50 ea 03/19/23 03/19/23 Unknown Rx Glucose Test strips) blood-glucose meter (Blood Glucose #1 ea 03/19/23 03/19/23 Unknown Rx Monitoring kit) hydrocodone 5 mg-acetaminophen 325 1 tab PO BID PRN pain 30 days #60 03/19/23 03/24/23 03/24/23 Rx mg tablet tabs lancets #100 ea 03/19/23 03/19/23 Unknown Rx Allergies Allergy/AdvReac Type Severity Reaction Status Date / Time [facility] AdvReac upset Verified 03/25/23 08:07 stomach Current Medications Generic Name Dose Route Start Last Admin Trade Name Mary Jo PRN Reason Stop Dose Admin Sodium Chloride 1,000 mls @ 30 mls/hr 03/25/23 08:15 03/25/23 08:34 Sodium Chloride 0.9% IV 03/26/23 08:14 30 mls/hr .Q24H LOVELY Administration PFSH Anesthesia Medical History Arthralgia of left acromioclavicular joint Cervical disc disorder Chronic left shoulder pain Encounter for long-term (current) use of NSAIDs Encounter for long-term opiate analgesic use Fatigue half-way (current) use of opiate analgesic Lumbar pain Lumbosacral radiculopathy Tobacco abuse counseling Tobacco use Family History Mother Cancer Uterine Hypertension Father Cancer bladder Hypertension Grandmother Diabetes paternal Cancer maternal- grandmother had breast cancer Denies family history of Thyroid disease, antepartum Clotting disorder Chronic kidney disease (CKD) Bleeding disorder Stroke Social History Smoking and tobacco status: current every day smoker cigarettes Packs smoked per day: 1 Years cigarettes smoked: 25 Quit status (tobacco): considering quitting Alcohol intake: never Substance/Drug Use: never Data Anesthesia Cardiac Studies: No Data to Display
[2023-03-25] MEDS: ceFAZolin 2,000 MG in sodium chloride 0.9% (plus) 50 ML 100 MG IV (09:35)
[2023-03-25] MEDS: lidocaine-epi 2% 20 mL INJ INJECTION (10:05)
--- NOTE | 2023-03-25 10:51 | P.OP_ITS ---
Operative Report Date of procedure: March 25, 2023 Pre-op diagnosis: Lumbar stenosis with neurogenic claudication Post-op diagnosis: same Procedure done: 1. L4-5 laminectomy with partial facetectomy 2. L5-S1 laminectomy with partial facetectomy Surgeon: Sarkis Gagnon DO Cracker Off: Ashish Zepeda Cracker Off: The director surgical, Ashish Zepeda, KOMAL was needed for his expertise under the microscope. He was important and necessary throughout the procedure to complete in a safe and timely manner. He assisted with patient positioning prepping and draping tissue retraction suctioning of the operative field protection of the dural sac and tissue closure Estimated blood loss (mL): 25 Procedure: 1. L4-5 laminectomy with partial facetectomy 2. L5-S1 laminectomy with partial facetectomy Patient is brought to the operative suite. After undergoing anesthesia they are placed in the prone position. All areas of impingement are well padded. Patient is then prepped and draped in the normal sterile fashion. A skin incision is made over the L4/5 level. This is confirmed under c-arm guidance. A series of dilators are passed and the tubular retractor is docked on the L4 lamina. A bovie is used to clear the soft tissue off the lamina and the L 4/5 facet joint. A high speed jose roberto is then used to perform the laminectomy and take down the medial aspect of the L 4/5 facet joint. A kerrison rongeure was then used to take down the remaining lamina and smooth the edge of the laminectomy up to the point where the ligamentum flavum attaches. Attention was then brought to the medial aspect of the facet joint. The remaining medial aspect of the superior and inferior aspect of the facet joint were taken down with the kerrison from the pedicle of L4 to L 5. The facet joint had significant hypertrophy. Attention was then brought to the Ligamentum Flavum. The ligament was taken down from the lamina of L4 to L5 and out medially to the remaining facet joint. The ligament was thick. The dura was then exposed. The dura was in good repair. The L4 nerve was then traced with a curette out the L4/5 foramen and found to be adequately decompressed. The L5 nerve was traced with a curette around the L5 pedicle. The lateral recess was opened with a kerrison helping to further decompress the L5 nerve. Wound is then irrigated copiously with saline and surgiflo is used to stop any bleeding. The tubular retractor is removed and the A skin incision is made over the L5/S1 level. This is confirmed under c-arm guidance. A series of dilators are passed and the tubular retractor is docked on the L5 lamina. A bovie is used to clear the soft tissue off the lamina and the L 5/S1 facet joint. A high speed jose roberto is then used to perform the laminectomy and take down the medial aspect of the L 5/S1 facet joint. A kerrison rongeure was then used to take down the remaining lamina and smooth the edge of the laminectomy up to the point where the ligamentum flavum attaches. Attention was then brought to the medial aspect of the facet joint. The remaining medial aspect of the superior and inferior aspect of the facet joint were taken down with the kerrison from the pedicle of L5 to s1. The facet joint had significant hypertrophy. Attention was then brought to the Ligamentum Flavum. The ligament was taken down from the lamina of L5 to S1 and out medially to the remaining facet joint. The ligament was thick. The dura was then exposed. The dura was in good repair. The L5 nerve was then traced with a curette out the L5/S1 foramen and found to be adequately decompressed. The s1 nerve was traced with a curette around the S1 pedicle. The lateral recess was opened with a kerrison helping to further decompress the S1 nerve. Wound is then irrigated copiously with saline and surgiflo is used to stop any bleeding. The tubular retractor is removed and the wound is closed with vicryl and monocryl suture. Glue is then used to protect the wound. A sterile dressing is then placed. Patient was then placed in the supine position and transferred to the PACU in stable condition.
--- NOTE | 2023-03-25 11:00 | ANE.PACU2 ---
Inpatient post-anesthesia follow up: Airway intact: Yes Vital signs: Temperature 97.8 F Pulse Rate 70 Respiratory Rate 16 Blood Pressure 143/80 Pulse Oximetry 92 Oxygen Delivery Me thod Room Air Oxygen Flow Rate 8 Fraction of Inspir ed Oxygen Hydration adequate: Yes Nausea and vomiting: No Pain level: 1 Mental status: Baseline
[2023-03-25] MEDS: HYDROcodone-acetaminophen 5-325 mg Tablet 1 TAB PO (11:25)
== END 2023-03-25 12:04 | disposition home or self-care (01) ==
PROVIDERS: PCP Family Medicine; Visit Provider Orthopaedic Surgery
PROC: (CPT 63005; principal; 2023-03-25 09:25)
DX: M48.062 Spinal stenosis, lumbar region with neurogenic claudication (principal); J44.9 Chronic obstructive pulmonary disease, unspecified; I10 Essential (primary) hypertension; K21.9 Gastro-esophageal reflux disease without esophagitis; E78.5 Hyperlipidemia, unspecified; F17.210 Nicotine dependence, cigarettes, uncomplicated; I45.10 Unspecified right bundle-branch block
CPT/HCPCS: 63047; 63048; 36416; 72100; 76000; 82962; 93005; J0330; J0690; J1100; J2405; J2704; J3010; J3490; J7030

== ENCOUNTER → 2023-04-07 13:17 | Outpatient (BNVA) | payer MEDICARE, MEDICAID, SELFPAY | PROVIDERS: PCP Family Medicine; Visit Provider Family Medicine | DX: Z23 Encounter for immunization (principal); E11.9 Type 2 diabetes mellitus without complications; R53.83 Other fatigue; E34.9 Endocrine disorder, unspecified; G47.10 Hypersomnia, unspecified; I10 Essential (primary) hypertension; R53.82 Chronic fatigue, unspecified | CPT/HCPCS: 82607; 84402; 84403; 84443 ==

== ENCOUNTER → 2023-04-09 09:04 | Outpatient (BNVA) | payer MEDICARE, MEDICAID, SELFPAY | PROVIDERS: PCP Family Medicine; Visit Provider Physician Assistant | DX: M48.062 Spinal stenosis, lumbar region with neurogenic claudication (principal); Z47.89 Encounter for other orthopedic aftercare | CPT/HCPCS: 72100; 99024 ==

== ENCOUNTER → 2023-04-15 14:20 | Outpatient (BNVA) | payer MEDICARE, MEDICAID, SELFPAY | PROVIDERS: PCP Family Medicine; Visit Provider Anesthesiology Pain Medicine | DX: M51.16 Intervertebral disc disorders with radiculopathy, lumbar region (principal); M48.062 Spinal stenosis, lumbar region with neurogenic claudication | CPT/HCPCS: 99214 ==

== ENCOUNTER → 2023-05-07 09:52 | Outpatient (BNVA) | payer MEDICARE, MEDICAID, SELFPAY | PROVIDERS: PCP Family Medicine; Visit Provider Physician Assistant | DX: Z47.89 Encounter for other orthopedic aftercare (principal) | CPT/HCPCS: 99024 ==

== ENCOUNTER → 2023-06-29 09:28 | Outpatient (BNVA) | payer MEDICARE, MEDICAID, SELFPAY | PROVIDERS: PCP Family Medicine; Visit Provider Anesthesiology Pain Medicine | DX: M51.16 Intervertebral disc disorders with radiculopathy, lumbar region (principal); M48.062 Spinal stenosis, lumbar region with neurogenic claudication | CPT/HCPCS: 99214 ==

== ENCOUNTER → 2023-07-30 12:41 | Outpatient (BNVA) | payer MEDICARE, MEDICAID, SELFPAY | PROVIDERS: PCP Family Medicine; Visit Provider Anesthesiology Pain Medicine | DX: M48.062 Spinal stenosis, lumbar region with neurogenic claudication (principal); M51.26 Other intervertebral disc displacement, lumbar region | CPT/HCPCS: 99213; 99214 ==

== ENCOUNTER → 2023-08-27 12:38 | Outpatient (BNVA) | payer MEDICARE, MEDICAID, SELFPAY | PROVIDERS: PCP Family Medicine; Visit Provider Anesthesiology Pain Medicine | DX: M51.16 Intervertebral disc disorders with radiculopathy, lumbar region (principal); M48.062 Spinal stenosis, lumbar region with neurogenic claudication | CPT/HCPCS: 99214 ==

== ENCOUNTER → 2023-09-24 12:54 | Outpatient (BNVA) | payer MEDICARE, MEDICAID, SELFPAY | PROVIDERS: PCP Family Medicine; Visit Provider Anesthesiology Pain Medicine | DX: M51.16 Intervertebral disc disorders with radiculopathy, lumbar region (principal); M48.062 Spinal stenosis, lumbar region with neurogenic claudication; M51.27 Other intervertebral disc displacement, lumbosacral region | CPT/HCPCS: 99214 ==

== ENCOUNTER → 2023-10-22 12:36 | Outpatient (BNVA) | payer MEDICARE, MEDICAID, SELFPAY | PROVIDERS: PCP Family Medicine; Visit Provider Anesthesiology Pain Medicine | DX: M51.16 Intervertebral disc disorders with radiculopathy, lumbar region (principal); M48.062 Spinal stenosis, lumbar region with neurogenic claudication; M51.26 Other intervertebral disc displacement, lumbar region | CPT/HCPCS: 99214 ==

== ENCOUNTER → 2023-11-11 11:10 | Outpatient (BNVA) | payer MEDICARE, MEDICAID, SELFPAY | PROVIDERS: PCP Family Medicine; Visit Provider Family Medicine | DX: I10 Essential (primary) hypertension (principal); E78.5 Hyperlipidemia, unspecified; E78.2 Mixed hyperlipidemia; E11.9 Type 2 diabetes mellitus without complications; M48.062 Spinal stenosis, lumbar region with neurogenic claudication; G47.10 Hypersomnia, unspecified; Z79.899 Other long term (current) drug therapy | CPT/HCPCS: 80053; 80061; 83036 ==

== ENCOUNTER → 2023-12-08 10:39 | Outpatient (BNVA) | payer MEDICARE, MEDICAID, SELFPAY | PROVIDERS: PCP Family Medicine; Visit Provider Anesthesiology Pain Medicine | DX: M51.16 Intervertebral disc disorders with radiculopathy, lumbar region (principal); M48.062 Spinal stenosis, lumbar region with neurogenic claudication | CPT/HCPCS: 99214 ==

== ENCOUNTER → 2024-05-16 13:13 | Outpatient (BNVA) | payer MEDICARE, MEDICAID, SELFPAY | PROVIDERS: PCP Family Medicine; Visit Provider Family Medicine | DX: E11.9 Type 2 diabetes mellitus without complications (principal) | CPT/HCPCS: 80048; 83036 ==

== ENCOUNTER → 2024-09-21 08:39 | Outpatient (BNVA) | payer MEDICARE, MEDICAID, SELFPAY | PROVIDERS: PCP Family Medicine; Visit Provider Nurse Practitioner Family | DX: L82.1 Other seborrheic keratosis (principal); D22.5 Melanocytic nevi of trunk; L91.8 Other hypertrophic disorders of the skin; L57.8 Other skin changes due to chronic exposure to nonionizing radiation | CPT/HCPCS: 99203 ==

== ENCOUNTER → 2024-11-15 13:36 | Outpatient (BNVA) | payer MEDICARE, MEDICAID, SELFPAY | PROVIDERS: PCP Family Medicine; Visit Provider Family Medicine | DX: I10 Essential (primary) hypertension (principal); E78.2 Mixed hyperlipidemia; E11.9 Type 2 diabetes mellitus without complications | CPT/HCPCS: 80053; 80061; 83036 ==

== ENCOUNTER → 2025-02-01 10:25 | Outpatient (BNVA) | payer MEDICARE, MEDICAID, SELFPAY | PROVIDERS: PCP Family Medicine; Visit Provider Family Medicine | DX: E11.9 Type 2 diabetes mellitus without complications (principal) | CPT/HCPCS: 80048; 83036 ==

== ENCOUNTER 2025-04-04 14:11 | Outpatient (CLI) | payer MEDICARE, MEDICAID, SELFPAY ==
--- NOTE | 2025-04-04 14:18 | MR_ITS ---
WS: [id number] MRI LUMBAR SPINE NONCONTRAST TECHNIQUE: Sagittal T1, T2 and STIR imaging. Axial T1 and T2 imaging. 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 No acute compression. Disc bulging worse at L2-3 and L5-S1 similar to previous. Hemilaminectomies LEFT L4-L5 and L5-S1. L1-L2: Normal. L2-L3: Shallow central protrusion. Spinal canal and foramen are patent. L3-L4: Normal. L4-L5: Small RIGHT foraminal protrusion with mild RIGHT foraminal narrowing. Spinal canal and LEFT foramen are patent. Mild facet arthropathy. L5-S1: RIGHT paracentral protrusion with contact of the RIGHT S1 nerve root. Recommend correlation RIGHT S1 nerve root symptoms. Moderate LEFT foraminal narrowing. Mild RIGHT foraminal narrowing. Foraminal narrowing appears slightly progressed with increased loss of disc base height. Mild facet arthropathy. Visualized pelvic bony structures: Normal. Paravertebral soft tissues: Normal. MR/MR lumbar spine wo con* [id number] IMPRESSION: 1. Mild annular bulge at L2-3 with slight effacement of the ventral thecal sac . This appears stable. 2. Small RIGHT foraminal protrusion L4-5 slightly impinges the exiting L4 nerv e root. This is similar to previous. 3. Slight retrolisthesis L5 on S1. RIGHT paracentral disc bulging slightly imp inges the RIGHT S1 nerve root. Recommend correlation RIGHT S1 nerve root sympto ms. Mild facet arthropathy. Moderate LEFT and mild RIGHT foraminal narrowing ap pears slightly progressed with slightly more disc desiccation today.
== END 2025-04-04 14:12 | disposition home or self-care (01) ==
LOC: RAD 14:14
PROVIDERS: PCP Family Medicine; Visit Provider Student in an Organized Health Care Education/Training Program
DX: M48.061 Spinal stenosis, lumbar region without neurogenic claudication (principal); M51.26 Other intervertebral disc displacement, lumbar region; M51.27 Other intervertebral disc displacement, lumbosacral region; M47.896 Other spondylosis, lumbar region; M51.17 Intervertebral disc disorders with radiculopathy, lumbosacral region; M48.07 Spinal stenosis, lumbosacral region
CPT/HCPCS: 72148